=== PATIENT | female | born 1970 | race Caucasian/White ===

== ENCOUNTER → 2017-07-09 | Outpatient (CLI) | payer OTHER ==
[~2017-07-09] MED LIST: HYDR-5688 PO; IMT50 PO; OMEP20CA9 PO; TPM/50 PO
== END | disposition home or self-care (01) ==
LOC: C.PAPS 12:02
PROVIDERS: ATTEND Family Medicine
DX: Z12.4 Encounter for screening for malignant neoplasm of cervix (principal)